=== PATIENT | female | born 1990 | race African-American/Black ===

== ENCOUNTER 2025-05-19 21:41 | Emergency (ER) | payer BC ==
[2025-05-19 22:38] LABS: Influenza A Ag Negative; Influenza B Ag Negative; SARS-CoV-2 Antigen Rapid Res Negative (Negative)
--- NOTE | 2025-05-19 22:49 | ER ---
Nurse's Notes [facility] Name: Ann Higginbotham Age: 35 yrs Sex: Female : 1990 Arrival Date: 05/19/2025 Time: 21:41 Bed IW3 Private MD: Diagnosis: Acute pharyngitis, unspecified Presentation: 05/19 21:57 Chief complaint: Patient states: I HAVE BEEN HAVING A SORE THROAT AND R EAR PAIN FOR jb4 THE PAST WEEK. 22:00 Coronavirus screen: At this time, the client does not indicate any symptoms associated jb4 with coronavirus-19. Ebola Screen: No symptoms or risks identified at this time. Initial Sepsis Screen: Does the patient meet any 2 criteria? No. Patient's initial sepsis screen is negative. Does the patient have a suspected source of infection? No. Patient's initial sepsis screen is negative. Risk Assessment: Do you want to hurt yourself or someone else? Patient reports no desire to harm self or others. Onset of symptoms was May 12, 2025. 22:00 Method Of Arrival: Ambulatory jb4 22:00 Acuity: OSCAR 4 jb4 Historical: - Allergies: 22:00 No Known Allergies; jb4 - PMHx: 22:00 None; jb4 - PSHx: 22:00 None; jb4 - Immunization history:: Adult Immunizations up to date. - Infectious Disease History:: Denies. - Social history:: Smoking status: Patient denies any tobacco usage or history of. Screenin:00 [facility] ED Fall Risk Assessment (Adult) History of falling in the last 3 months, jb4 including since admission No falls in past 3 months (0 pts) Confusion or Disorientation No (0 pts) Intoxicated or Sedated No (0 pts) Impaired Gait No (0 pts) Mobility Assist Device Used No (0 pt) Altered Elimination No (0 pt) Score/Fall Risk Level 0 - 2 = Low Risk Oriented to surroundings, Maintained a safe environment. Abuse screen: Denies threats or abuse. Nutritional screening: No deficits noted. Tuberculosis screening: No symptoms or risk factors identified. Assessment: 22:00 General: Appears in no apparent distress. comfortable, Behavior is calm, cooperative, jb4 appropriate for age. Pain: Complains of pain in right ear, throat Pain does not radiate. Pain currently is 6 out of 10 on a pain scale. Neuro: Level of Consciousness is awake, alert, obeys commands, Oriented to person, place, time, situation. Cardiovascular: Patient's skin is warm and dry. Respiratory: Airway is patent Respiratory effort is even, unlabored, Respiratory pattern is regular, symmetrical. EENT: Throat is clear with gag reflex present. Derm: Skin is intact, Skin is dry, Skin is normal, Skin temperature is warm. Musculoskeletal: Circulation, motion, and sensation intact. Range of motion: intact in all extremities. Vital Signs: 22:06 BP 143 / 108; Pulse 90; Resp 16; Temp 98.5(O); Pulse Ox 100% on R/A; Weight 117.93 kg jb4 (R); Height 5 ft. 8 in. (R); 22:06 Body Mass Index 39.53 (117.93 kg, 172.72 cm) jb4 ED Course: 21:48 Patient arrived in ED. im 21:49 Dayana Childs FNP-C is [facility]. kb 21:49 Ketan Nolasco MD is Attending Physician. kb 22:00 Triage completed. jb4 22:00 Arm band placed on right wrist. jb4 22:00 Patient has correct armband on for positive identification. Bed in low position. Call jb4 light in reach. Side rails up X 1. Provided Education on: plan of care. 22:00 No provider procedures requiring assistance completed. Patient did not have IV access jb4 during this emergency room visit. Administered Medications: No medications were administered Medication: 22:00 VIS not applicable for this client. jb4 Outcome: 22:48 Discharge ordered by . michelle 23:16 Discharged to home ambulatory, bear 23:16 Condition: good 23:16 Discharge instructions given to patient, Instructed on discharge instructions, Demonstrated understanding of instructions, 23:43 Patient left the ED. kb Signatures: Dayana Childs FNP-C FNP-Ckb Bryson, James, RN RN jb4 Blanca Arias RN RN jj7 Mendoza, Itzel im
--- NOTE | 2025-05-19 22:49 | EDPHYS ---
Physician Documentation [facility] Name: Ann Higginbotham Age: 35 yrs Sex: Female : 1990 Arrival Date: 05/19/2025 Time: 21:41 Bed IW3 Private MD: ED Physician Ketan Nolasco HPI: 05/19 22:00 This 35 yrs old Female presents to ER via Unassigned with complaints of Flu Symptoms. kb 22:00 Pt is a 35 year old female who presents for sore throat and right ear pain for one kb week. Denies fever, congestion. States she has had a slight cough. Children have similar symptoms. Historical: - Allergies: 22:00 No Known Allergies; jb4 - PMHx: 22:00 None; jb4 - PSHx: 22:00 None; jb4 - Immunization history:: Adult Immunizations up to date. - Infectious Disease History:: Denies. - Social history:: Smoking status: Patient denies any tobacco usage or history of. ROS: 22:00 Constitutional: As per HPI kb Exam: 22:00 Constitutional: This is a well developed, well nourished patient who is awake, alert, kb and in no acute distress. Head/Face: Normocephalic, atraumatic. Cardiovascular: Regular rate Respiratory: Respirations even and unlabored. No increased work of breathing. Talking in full sentences Skin: Warm, dry with normal turgor. Normal color. MS/ Extremity: Pulses equal, no cyanosis. Neurovascular intact. Full, normal range of motion. Neuro: Awake and alert, GCS 15, oriented to person, place, time, and situation. 22:00 ENT: External ear(s): are unremarkable, Ear canal(s): are normal, TM's: are normal, Posterior pharynx: erythema, that is mild, Vital Signs: 22:06 BP 143 / 108; Pulse 90; Resp 16; Temp 98.5(O); Pulse Ox 100% on R/A; Weight 117.93 kg jb4 (R); Height 5 ft. 8 in. (R); 22:06 Body Mass Index 39.53 (117.93 kg, 172.72 cm) jb4 MDM: 21:49 Medical Screening Exam initiated kb 22:47 Differential diagnosis: Flu, COVID, URI, strep, pharyngitis. Data reviewed: vital kb signs, nurses notes. I considered the following discharge prescriptions or medication management in the emergency department I discussed and recommended Over The Counter medications, Antibiotics: At this time antibiotics are not recommended. Counseling: I had a detailed discussion with the patient and/or guardian regarding the historical points, exam findings, and any diagnostic results supporting the discharge/admit diagnosis, lab results, the need for outpatient follow up, a family practitioner, to return to the emergency department if symptoms worsen or persist or if there are any questions or concerns that arise at home. 05/19 22:01 Order name: Group A Streptococcus Rapid; Complete Time: 22:45 kb 05/19 22:01 Order name: COVID-19 Ag + Flu A+B Ag; Complete Time: 22:45 kb 05/19 22:37 Order name: Throat Culture EDMS Administered Medications: No medications were administered Disposition: 05/20 04:01 Co-signature as Attending Physician, Ketan Nolasco MD I agree with the assessment sp4 and plan of care. I reviewed the patient's care provided by the Advanced Practice Provider and agree with the diagnosis and treatment plan. Disposition Summary: 05/19/25 22:48 Discharge Ordered Notes: Location: Home kb Condition: Stable kb Diagnosis - Acute pharyngitis, unspecified kb Followup: kb - With: Emergency Department - When: As needed - Reason: Worsening of condition Followup: kb - With: Private Physician - When: 2 - 3 days - Reason: Recheck today's complaints, Continuance of care, Re-evaluation by your physician Discharge Instructions: - Discharge Summary Sheet kb - Pharyngitis, [id number] kb Forms: - Medication Reconciliation Form kb - Antibiotic Education kb - Prescription Opioid Use kb - Patient Portal Instructions kb - Leadership Thank You Letter kb Signatures: Dispatcher [employer] EDMS Dayana Childs FNP-C FNP-Kaveh Burgos, HERVE RN Ketan Gonzalez MD MD sp4 Corrections: (The following items were deleted from the chart) 05/19 22: 22:01 Group A Streptococcus Rapid Sc+I.LAB.BRZ ordered. EDMS EDMS 22: 22:01 COVID-19 Ag + Flu A+B Ag+I.LAB.BRZ ordered. EDMS EDMS
[2025-05-20 07:42] VITALS: BP 143/108; TEMP 98.5; O2SAT 100
== END 2025-05-19 23:43 | disposition home or self-care (01) ==
LOC: ER 21:41
DX: J02.9 Acute pharyngitis, unspecified (principal); R05.9 Cough, unspecified; Z11.52 Encounter for screening for COVID-19
CPT/HCPCS: 36415; 87070; 87428; 99282